=== PATIENT | female | born 1960 | race Asian ===

== ENCOUNTER 2019-06-15 08:06 | Day surgery (SDC) | payer BC ==
[2019-06-15] MEDS: SOD CHLORIDE 0.9% 1,000 ML IV (07:00)
[~2019-06-15 08:06] MED LIST: CEFAZOLIN 2 GM/50 ML (PMX) 50 ML IVPB
[2019-06-15] MEDS ORDERED: LIDOCAINE 2% (SDV) 5 ML INJ (11:19)
[2019-06-15] MEDS ORDERED: PROPOFOL 20 ML (11:19)
[2019-06-15] MEDS ORDERED: CEFAZOLIN 1 GM INJ (11:19)
[2019-06-15] MEDS ORDERED: ONDANSETRON 4 MG INJ (11:59)
[2019-06-15] MEDS ORDERED: DEXAMETHASONE 4 MG/ML 5 ML INJ (11:59)
[2019-06-15] MEDS ORDERED: METOCLOPRAMIDE 10 MG INJ (11:59)
[2019-06-15] MEDS ORDERED: FAMOTIDINE 20 MG INJ (12:00)
[2019-06-15] MEDS ORDERED: hydrALAzine 20 MG INJ IV (12:30)
[2019-06-15] MEDS ORDERED: HYDROCODONE/APAP (7.5/325) TAB PO (12:30)
[2019-06-15] MEDS ORDERED: LABETALOL HCL 20MG INJ IV (12:30)
[2019-06-15] MEDS ORDERED: HYDROmorphONE 1 MG/5 ML IV SYRINGE IV ×3 (12:30)
[2019-06-15] MEDS ORDERED: MEPERIDINE 25 MG INJ IV (12:30)
[2019-06-15] MEDS ORDERED: ONDANSETRON 4 MG INJ IV (12:30)
[2019-06-15] MEDS ORDERED: OXYCODONE/ACETAMINOPHEN (5/325) TAB PO ×2 (12:30)
== END 2019-06-15 14:30 | disposition home or self-care (01) ==
LOC: SDS 08:06
DX: D24.1 Benign neoplasm of right breast (principal); E78.5 Hyperlipidemia, unspecified
CPT/HCPCS: 19120; 88307